=== PATIENT | female | born 1965 | race African-American/Black ===

== ENCOUNTER 2021-06-14 13:24 | Inpatient (IN) | payer OTHER ==
[2021-06-14] MEDS ORDERED: SODIUM CHLORIDE 500 ML IV STA (13:58)
[2021-06-14] MEDS ORDERED: SODIUM CHLORIDE 250 ML IV STA (14:14)
[2021-06-14 14:51] LABS: BASO % 2.7 % (0-2.0); EOS % 0.6 % (0-4.5); LYMPH % 19.7 % (8-40); MCH 32.9 pg (25.7-33.7); MCHC 33.4 g/dl (32.0-36.0); MEAN CELL VOLUME 98.5 fl (80-96); MONO % 5.4 % (3.8-10.2); NEUT % 71.6 % (42.8-82.8); PLATELET COUNT 378 10^3/uL (134-434); RBC 3.96 M/mm3 (3.60-5.2); RDW 15.8 % (11.6-15.6); WHITE BLOOD COUNT 9.8 K/mm3 (4.0-10.0)
[2021-06-14 15:15] LABS: CHLORIDE 97 mmol/L (98-107); SODIUM 137 mmol/L (136-145)
[2021-06-14 15:16] LABS: MAGNESIUM 2.2 mg/dL (1.8-2.4)
[2021-06-14 15:17] LABS: CALCIUM 8.5 mg/dL (8.5-10.1)
[2021-06-14 15:18] LABS: ALBUMIN 2.9 g/dl (3.4-5.0); ANION GAP 17 MMOL/L (8-16); BLOOD UREA NITROGEN 82.4 mg/dL (7-18); CO2 22 mmol/L (21-32)
[2021-06-14 15:20] LABS: PHOSPHOROUS 7.8 mg/dL (2.5-4.9)
[2021-06-14 15:21] LABS: SGOT/AST 12 U/L (15-37); SGPT/ALT 37 U/L (13-61)
[2021-06-14 15:22] LABS: BILIRUBIN,TOTAL 0.5 mg/dL (0.2-1); TOT PROT 6.2 g/dl (6.4-8.2)
[2021-06-14 15:24] LABS: ALK PHOS 143 U/L (45-117)
[2021-06-14] MEDS ORDERED: INSULIN REGULAR HUMAN 100 UNITS/ML *VIAL IVPUSH ONE (15:28)
[2021-06-14 15:36] LABS: CREATININE 11.5 mg/dL (0.55-1.3); GLUCOSE,RANDOM 406 mg/dL (74-106); LACTIC ACID 5.8 mmol/L (0.4-2.0)
[2021-06-14] MEDS ORDERED: INSULIN REGULAR HUMAN 100 UNITS/ML *VIAL ONE (15:57)
[2021-06-14] MEDS ORDERED: RAPID SEQUENCE INTUBATION KIT NR ONE (16:04)
[2021-06-14] MEDS ORDERED: VANCOMYCIN 1 GM in D5W (PRE-DOCKED) 1,000 MG/250 ML IVPB ONE (16:40)
[2021-06-14] MEDS ORDERED: PIPERACILLIN/TAZOB 4.5 GM 4.5 GM in DEXTROSE 5%-WATER 100 ML IVPB ONE (16:40)
[2021-06-14 16:42] LABS: VENOUS BASE EXCESS -12.4 mmol/L (-2-2); VENOUS O2 SATURATION 72.4 % (70-80); VENOUS PCO2 48.4 mmHg (38-52)
[2021-06-14] MEDS ORDERED: VANCOMYCIN 1 GRAM (PRE-DOCKED) 1,000 MG/250 ML BAG IVPB ONE (16:50)
[2021-06-14] MEDS ORDERED: SODIUM CHLORIDE 1,000 ML IV STA (16:50)
[2021-06-14] MEDS ORDERED: PIPERACILLIN/TAZOB 4.5 GM 4.5 GM/100 ML BAG IVPB ONE (16:50)
[2021-06-14 17:02] LABS: VENOUS PH 7.15 (7.310-7.410)
[2021-06-14] MEDS: NOREPINEPHRINE BITARTRATE 16,000 MCG in SODIUM CHLORIDE 484 ML IV SCH (17:15)
[2021-06-14] MEDS ORDERED: ONDANSETRON 4 MG/2 ML VIAL ONE (20:17)
[2021-06-14] MEDS ORDERED: ONDANSETRON 4 MG/2 ML VIAL IVPB ONE (20:26)
[2021-06-14 21:28] LABS: CHLORIDE 101 mmol/L (98-107); SODIUM 138 mmol/L (136-145)
[2021-06-14 21:29] LABS: ANION GAP 17 MMOL/L (8-16); BLOOD UREA NITROGEN 82.1 mg/dL (7-18); CALCIUM 8.3 mg/dL (8.5-10.1); CO2 19 mmol/L (21-32)
[2021-06-14 21:47] LABS: CREATININE 11.5 mg/dL (0.55-1.3); GLUCOSE,RANDOM 428 mg/dL (74-106)
[2021-06-14] MEDS ORDERED: VASOPRESSIN 20 UNITS/ML VIAL IV ONE (22:14)
[2021-06-14] MEDS ORDERED: HEPARIN NA (PORCINE) 5,000 UNITS/ML 1ML VIAL ONE (22:21)
[2021-06-14] MEDS ORDERED: INSULIN REGULAR 100 UNITS in SODIUM CHLORIDE 99 ML IVPB SCH (22:30)
[2021-06-14] MEDS: VASOPRESSIN 40 UNITS/100 ML BAG IV SCH (22:45)
[2021-06-14] MEDS: HEPARIN NA (PORCINE) 5,000 UNITS/ML 1ML VIAL SQ SCH (22:45)
[2021-06-14 23:26] VITALS: BMI 42.2
[2021-06-15 00:01] LABS: ARTERIAL BLD GAS O2 SATURATION 99.5 % (95-98); ARTERIAL BLOOD GAS BASE EXCESS -12.4 mmol/L (-2-2); ARTERIAL BLOOD GAS PO2 292.1 mmHg (80-100); ARTERIAL BLOOD GAS pH 7.196 (7.350-7.450)
[2021-06-15] MEDS ORDERED: NOREPINEPHRINE BITARTRATE 4 MG/4 ML ML IV ONE (00:57)
[2021-06-15] MEDS ORDERED: SODIUM CHLORIDE 250 ML IV PRN (01:29)
[2021-06-15 04:54] LABS: CHLORIDE 102 mmol/L (98-107); SODIUM 138 mmol/L (136-145)
[2021-06-15 04:56] LABS: ALBUMIN 2.4 g/dl (3.4-5.0); ANION GAP 18 MMOL/L (8-16); BLOOD UREA NITROGEN 85.9 mg/dL (7-18); CO2 18 mmol/L (21-32)
[2021-06-15 04:59] LABS: SGOT/AST 12 U/L (15-37); SGPT/ALT 29 U/L (13-61)
[2021-06-15 05:01] LABS: BILIRUBIN,TOTAL 0.5 mg/dL (0.2-1); TOT PROT 5.6 g/dl (6.4-8.2)
[2021-06-15 05:19] LABS: ALK PHOS 109 U/L (45-117); CREATININE 11.2 mg/dL (0.55-1.3); GLUCOSE,RANDOM 408 mg/dL (74-106)
[2021-06-15] MEDS: HEPARIN NA (PORCINE) 5,000 UNITS/ML 1ML VIAL SQ SCH ×3 (05:54→22:09)
[2021-06-15 06:37] LABS: ARTERIAL BLD GAS O2 SATURATION 99.3 % (95-98); ARTERIAL BLOOD GAS BASE EXCESS -11.3 mmol/L (-2-2); ARTERIAL BLOOD GAS pH 7.214 (7.350-7.450)
[2021-06-15 06:57] LABS: HEMATOCRIT 42.6 % (32.4-45.2); HEMOGLOBIN 13.9 GM/dL (10.7-15.3); MCHC 32.6 g/dl (32.0-36.0); MEAN CELL VOLUME 101.3 fl (80-96); MEAN PLT VOLUME 10.7 fl (7.5-11.1); PLATELET COUNT 427 10^3/uL (134-434); WHITE BLOOD COUNT 14.4 K/mm3 (4.0-10.0)
[2021-06-15 07:09] LABS: CHLORIDE 105 mmol/L (98-107); SODIUM 138 mmol/L (136-145)
[2021-06-15 07:12] LABS: ALBUMIN 2.2 g/dl (3.4-5.0); ANION GAP 13 MMOL/L (8-16); CO2 20 mmol/L (21-32); GLUCOSE,RANDOM 250 mg/dL (74-106); MAGNESIUM 1.9 mg/dL (1.8-2.4)
[2021-06-15 07:15] LABS: PHOSPHOROUS 6.1 mg/dL (2.5-4.9); SGOT/AST 11 U/L (15-37); SGPT/ALT 28 U/L (13-61)
[2021-06-15 07:16] LABS: BILIRUBIN,TOTAL 0.5 mg/dL (0.2-1)
[2021-06-15 07:17] LABS: TOT PROT 5.7 g/dl (6.4-8.2)
[2021-06-15 07:18] LABS: ALK PHOS 102 U/L (45-117)
[2021-06-15 07:22] LABS: LACTIC ACID 3.1 mmol/L (0.4-2.0)
[2021-06-15 07:23] LABS: CREATININE 11.3 mg/dL (0.55-1.3)
[2021-06-15] MEDS: INSULIN SLIDING SCALE (NOVOLOG) 1 VIAL SQ SCH ×4 (09:03→22:07)
[2021-06-15] MEDS: INSULIN (LEVEMIR) 100 UNITS/ML UNITS SQ SCH ×2 (09:07→22:08)
[2021-06-15] MEDS: ONDANSETRON 4 MG/2 ML VIAL IVPUSH PRN (09:07)
[2021-06-15] MEDS ORDERED: FLU VACC QS2021-22(6MOS UP)/PF 60 MCG/0.5 ML SYRINGE IM ONE (10:00)
[2021-06-15] MEDS: MUPIROCIN 2% TOPICAL OINTMENT FOR DECOLONIZATION NS SCH ×2 (10:00→22:13)
[2021-06-15 10:37] LABS: ANISOCYTOSIS 0; HELMET CELLS 0; HOWELL-JOLLY BODIES 0; MACROCYTOSIS 0; OVALOCYTE 0; PLATELET ESTIMATE NORMAL; ROULEAU 0; SICKELED CELLS 0; TARGET CELLS 0; TEAR DROP CELLS 0; TOXIC GRANULATION 0
[2021-06-15] MEDS ORDERED: PIPERACILLIN/TAZOB 2.25 GM 2.25 GM in DEXTROSE 5%-WATER - 50 ML IVPB SCH (11:45)
[2021-06-15] MEDS ORDERED: INSULIN (LEVEMIR) 100 UNITS/ML UNITS SQ ONE (12:10)
[2021-06-15] MEDS ORDERED: MIDAZOLAM HCL 2 MG/2 ML SINGLE DOSE VIAL IVPUSH ONE ×2 (12:13→13:00)
[2021-06-15] MEDS ORDERED: PIPERACILLIN/TAZOBACTAM 2.25 GM VIAL IVPB ONE ×2 (12:18→20:00)
[2021-06-15] MEDS ORDERED: DEXTROSE 5%-WATER - 50 ML IVPB ONE ×2 (12:19→20:01)
[2021-06-15] MEDS: HYDROCORTISONE SOD SUCCINATE 100 MG/2 ML VIAL IVPUSH SCH ×3 (12:20→22:10)
[2021-06-15] MEDS: PIPERACILLIN/TAZOB 2.25 GM 2.25 GM in DEXTROSE 5%-WATER - 50 ML IVPB SCH ×2 (12:21→19:30)
[2021-06-15] MEDS ORDERED: VANCOMYCIN 1 GM in D5W (PRE-DOCKED) 1,000 MG/250 ML IVPB ONE (13:00)
[2021-06-15] MEDS: VASOPRESSIN 40 UNITS/100 ML BAG IV SCH ×2 (19:50→23:22)
[2021-06-15] MEDS: SEVELAMER CARBONATE 800 MG TAB (FP) NR SCH ×2 (20:41→22:13)
[2021-06-15] MEDS: CHLORHEXIDINE GLUCONATE 4% CLEANSER FOR DECOLONIZATION TP SCH (22:12)
[2021-06-15] MEDS: NOREPINEPHRINE BITARTRATE 16,000 MCG in SODIUM CHLORIDE 484 ML IV SCH ×2 (22:12→23:22)
[2021-06-16] MEDS ORDERED: PIPERACILLIN/TAZOBACTAM 2.25 GM VIAL IVPB ONE ×3 (01:16→17:51)
[2021-06-16] MEDS ORDERED: DEXTROSE 5%-WATER - 50 ML IVPB ONE ×3 (01:16→17:51)
[2021-06-16] MEDS: PIPERACILLIN/TAZOB 2.25 GM 2.25 GM in DEXTROSE 5%-WATER - 50 ML IVPB SCH ×3 (01:23→18:02)
[2021-06-16] MEDS: ONDANSETRON 4 MG/2 ML VIAL IVPUSH PRN ×2 (01:47→21:56)
[2021-06-16] MEDS: VASOPRESSIN 40 UNITS/100 ML BAG IV SCH ×2 (02:28→21:56)
[2021-06-16] MEDS: HYDROCORTISONE SOD SUCCINATE 100 MG/2 ML VIAL IVPUSH SCH ×3 (03:35→18:16)
[2021-06-16] MEDS: HEPARIN NA (PORCINE) 5,000 UNITS/ML 1ML VIAL SQ SCH ×3 (05:46→21:56)
[2021-06-16] MEDS: SEVELAMER CARBONATE 800 MG TAB (FP) NR SCH ×3 (05:46→21:57)
[2021-06-16] MEDS: INSULIN (LEVEMIR) 100 UNITS/ML UNITS SQ SCH ×2 (06:03→21:57)
[2021-06-16] MEDS: INSULIN SLIDING SCALE (NOVOLOG) 1 VIAL SQ SCH ×4 (06:03→22:12)
[2021-06-16 07:03] LABS: BASO % 0.4 % (0-2.0); EOS % 1.5 % (0-4.5); HEMATOCRIT 32.1 % (32.4-45.2); HEMOGLOBIN 10.5 GM/dL (10.7-15.3); LYMPH % 8.9 % (8-40); MCH 33.3 pg (25.7-33.7); MCHC 32.8 g/dl (32.0-36.0); MEAN CELL VOLUME 101.5 fl (80-96); MEAN PLT VOLUME 10.7 fl (7.5-11.1); MONO % 8.5 % (3.8-10.2); NEUT % 80.7 % (42.8-82.8); PLATELET COUNT 257 10^3/uL (134-434); RBC 3.17 M/mm3 (3.60-5.2); RDW 15.7 % (11.6-15.6); WHITE BLOOD COUNT 14.4 K/mm3 (4.0-10.0)
[2021-06-16 07:18] LABS: CHLORIDE 100 mmol/L (98-107); SODIUM 139 mmol/L (136-145)
[2021-06-16 07:22] LABS: ANION GAP 15 MMOL/L (8-16); CO2 24 mmol/L (21-32); GLUCOSE,RANDOM 268 mg/dL (74-106)
[2021-06-16 07:25] LABS: PHOSPHOROUS 5.6 mg/dL (2.5-4.9); SGOT/AST 12 U/L (15-37); SGPT/ALT 19 U/L (13-61)
[2021-06-16 07:26] LABS: BILIRUBIN,TOTAL 0.4 mg/dL (0.2-1)
[2021-06-16 07:27] LABS: TOT PROT 5.2 g/dl (6.4-8.2)
[2021-06-16 07:28] LABS: ALK PHOS 90 U/L (45-117)
[2021-06-16 07:32] LABS: BLOOD UREA NITROGEN 52.9 mg/dL (7-18); CREATININE 7.9 mg/dL (0.55-1.3)
[2021-06-16] MEDS: MUPIROCIN 2% TOPICAL OINTMENT FOR DECOLONIZATION NS SCH ×2 (10:14→21:56)
[2021-06-16] MEDS ORDERED: MELATONIN 5 MG TABLETS PO PRN (10:37)
[2021-06-16 11:54] LABS: HIV INTERPRETATION NEGATIVE (NEGATIVE)
[2021-06-16] MEDS ORDERED: SODIUM CHLORIDE 250 ML IV PRN (12:14)
[2021-06-16] MEDS: POLYETHYLENE GLYCOL (HEALTHYLAX) 3350 17 GM PACKET PO SCH (21:57)
[2021-06-16] MEDS: CHLORHEXIDINE GLUCONATE 4% CLEANSER FOR DECOLONIZATION TP SCH (21:57)
[2021-06-16] MEDS ORDERED: traZODone HCL 50 MG TABLET (FP) PO SCH (22:00)
[2021-06-17] MEDS ORDERED: PIPERACILLIN/TAZOBACTAM 2.25 GM VIAL IVPB ONE ×3 (01:28→18:17)
[2021-06-17] MEDS ORDERED: DEXTROSE 5%-WATER - 50 ML IVPB ONE ×3 (01:28→18:17)
[2021-06-17] MEDS: HYDROCORTISONE SOD SUCCINATE 100 MG/2 ML VIAL IVPUSH SCH ×3 (01:47→22:17)
[2021-06-17] MEDS: PIPERACILLIN/TAZOB 2.25 GM 2.25 GM in DEXTROSE 5%-WATER - 50 ML IVPB SCH ×3 (01:47→20:21)
[2021-06-17] MEDS: SEVELAMER CARBONATE 800 MG TAB (FP) NR SCH ×2 (05:40→13:52)
[2021-06-17] MEDS: POLYETHYLENE GLYCOL (HEALTHYLAX) 3350 17 GM PACKET PO SCH ×3 (05:40→22:13)
[2021-06-17] MEDS: HEPARIN NA (PORCINE) 5,000 UNITS/ML 1ML VIAL SQ SCH ×3 (05:40→22:13)
[2021-06-17] MEDS: INSULIN (LEVEMIR) 100 UNITS/ML UNITS SQ SCH ×2 (06:00→22:15)
[2021-06-17] MEDS: INSULIN SLIDING SCALE (NOVOLOG) 1 VIAL SQ SCH ×4 (06:11→22:14)
[2021-06-17 07:04] LABS: HEMATOCRIT 29.3 % (32.4-45.2); HEMOGLOBIN 9.7 GM/dL (10.7-15.3); MCH 33.5 pg (25.7-33.7); MCHC 33.2 g/dl (32.0-36.0); MEAN CELL VOLUME 100.7 fl (80-96); MEAN PLT VOLUME 10.2 fl (7.5-11.1); PLATELET COUNT 223 10^3/uL (134-434); RBC 2.91 M/mm3 (3.60-5.2); RDW 15.9 % (11.6-15.6); WHITE BLOOD COUNT 14.5 K/mm3 (4.0-10.0)
[2021-06-17 07:22] LABS: CHLORIDE 102 mmol/L (98-107); SODIUM 139 mmol/L (136-145)
[2021-06-17 07:24] LABS: CALCIUM 7.5 mg/dL (8.5-10.1)
[2021-06-17 07:25] LABS: ALBUMIN 2.1 g/dl (3.4-5.0); ANION GAP 9 MMOL/L (8-16); BLOOD UREA NITROGEN 64.2 mg/dL (7-18); CO2 27 mmol/L (21-32); GLUCOSE,RANDOM 138 mg/dL (74-106); MAGNESIUM 1.9 mg/dL (1.8-2.4)
[2021-06-17 07:27] LABS: PHOSPHOROUS 4.7 mg/dL (2.5-4.9)
[2021-06-17 07:28] LABS: SGOT/AST 7 U/L (15-37); SGPT/ALT 16 U/L (13-61)
[2021-06-17 07:29] LABS: BILIRUBIN,TOTAL 0.4 mg/dL (0.2-1)
[2021-06-17 07:30] LABS: TOT PROT 5.4 g/dl (6.4-8.2)
[2021-06-17 07:31] LABS: ALK PHOS 88 U/L (45-117)
[2021-06-17 07:32] LABS: IRON SERUM 108 ug/dL (50-175); TOTAL IRON BINDING CAPACITY 88 ug/dL (250-450)
[2021-06-17] MEDS: ONDANSETRON 4 MG/2 ML VIAL IVPUSH PRN (08:17)
[2021-06-17] MEDS ORDERED: HYDROCORTISONE SOD SUCCINATE 100 MG/2 ML VIAL IVPUSH SCH (10:15)
[2021-06-17 10:31] LABS: ANISOCYTOSIS 1+; MACROCYTOSIS 0; PLATELET ESTIMATE NORMAL; TARGET CELLS 1+
[2021-06-17] MEDS: MUPIROCIN 2% TOPICAL OINTMENT FOR DECOLONIZATION NS SCH ×2 (10:33→22:12)
[2021-06-17] MEDS: NOREPINEPHRINE BITARTRATE 16,000 MCG in SODIUM CHLORIDE 484 ML IV SCH (17:59)
[2021-06-17] MEDS: SEVELAMER CARBONATE 800 MG TAB (FP) PO SCH (18:23)
[2021-06-17] MEDS: traZODone HCL 50 MG TABLET (FP) PO SCH (22:12)
[2021-06-17] MEDS: CHLORHEXIDINE GLUCONATE 4% CLEANSER FOR DECOLONIZATION TP SCH (22:13)
[2021-06-17] MEDS ORDERED: PT OWN MED DRAWER 7, Y5N ONE (23:04)
[2021-06-18] MEDS ORDERED: DEXTROSE 5%-WATER - 50 ML IVPB ONE ×2 (01:20→09:40)
[2021-06-18] MEDS ORDERED: PIPERACILLIN/TAZOBACTAM 2.25 GM VIAL IVPB ONE ×2 (01:20→09:40)
[2021-06-18] MEDS: PIPERACILLIN/TAZOB 2.25 GM 2.25 GM in DEXTROSE 5%-WATER - 50 ML IVPB SCH ×2 (01:55→10:08)
[2021-06-18] MEDS: POLYETHYLENE GLYCOL (HEALTHYLAX) 3350 17 GM PACKET PO SCH ×3 (06:18→21:37)
[2021-06-18] MEDS: INSULIN SLIDING SCALE (NOVOLOG) 1 VIAL SQ SCH ×4 (06:19→21:38)
[2021-06-18] MEDS: HEPARIN NA (PORCINE) 5,000 UNITS/ML 1ML VIAL SQ SCH ×3 (06:40→21:44)
[2021-06-18] MEDS: INSULIN (LEVEMIR) 100 UNITS/ML UNITS SQ SCH ×2 (06:42→21:45)
[2021-06-18] MEDS ORDERED: PT OWN MED DRAWER 7, Y5N ONE (06:53)
[2021-06-18 09:08] LABS: HEMATOCRIT 29.8 % (32.4-45.2); HEMOGLOBIN 9.7 GM/dL (10.7-15.3); MCH 32.9 pg (25.7-33.7); MCHC 32.5 g/dl (32.0-36.0); MEAN CELL VOLUME 101.4 fl (80-96); MEAN PLT VOLUME 9.9 fl (7.5-11.1); PLATELET COUNT 209 10^3/uL (134-434); RBC 2.94 M/mm3 (3.60-5.2); RDW 15.3 % (11.6-15.6); WHITE BLOOD COUNT 13.3 K/mm3 (4.0-10.0)
[2021-06-18 09:26] LABS: CALCIUM 7.5 mg/dL (8.5-10.1)
[2021-06-18 09:27] LABS: MAGNESIUM 1.9 mg/dL (1.8-2.4)
[2021-06-18 09:29] LABS: PHOSPHOROUS 2.5 mg/dL (2.5-4.9)
[2021-06-18 09:31] LABS: BILIRUBIN,TOTAL 0.4 mg/dL (0.2-1); CREATININE 6.3 mg/dL (0.55-1.3); TOT PROT 5.1 g/dl (6.4-8.2)
[2021-06-18 09:56] LABS: BLOOD UREA NITROGEN 38.9 mg/dL (7-18)
[2021-06-18] MEDS: SEVELAMER CARBONATE 800 MG TAB (FP) PO SCH ×3 (10:08→17:48)
[2021-06-18] MEDS: MUPIROCIN 2% TOPICAL OINTMENT FOR DECOLONIZATION NS SCH ×2 (10:09→21:37)
[2021-06-18] MEDS: HYDROCORTISONE SOD SUCCINATE 100 MG/2 ML VIAL IVPUSH SCH ×2 (10:09→21:44)
[2021-06-18 10:25] LABS: ANISOCYTOSIS 1+; MACROCYTOSIS 1+; PLATELET ESTIMATE NORMAL
[2021-06-18] MEDS ORDERED: POTASSIUM CHLORIDE TABS 20 MEQ TABLET.ER (FP) PO ONE (12:17)
[2021-06-18] MEDS ORDERED: SODIUM CHLORIDE 250 ML IV PRN ×2 (13:07→13:15)
[2021-06-18] MEDS: CHLORHEXIDINE GLUCONATE 4% CLEANSER FOR DECOLONIZATION TP SCH (21:44)
[2021-06-18] MEDS: traZODone HCL 50 MG TABLET (FP) PO SCH (21:44)
[2021-06-18] MEDS ORDERED: PROCHLORPERAZINE MALEATE 5 MG TABLET PO ONE (22:32)
[2021-06-19] MEDS: HEPARIN NA (PORCINE) 5,000 UNITS/ML 1ML VIAL SQ SCH ×3 (06:24→21:25)
[2021-06-19] MEDS: POLYETHYLENE GLYCOL (HEALTHYLAX) 3350 17 GM PACKET PO SCH ×3 (06:24→21:21)
[2021-06-19] MEDS: INSULIN SLIDING SCALE (NOVOLOG) 1 VIAL SQ SCH ×4 (06:25→21:35)
[2021-06-19] MEDS: INSULIN (LEVEMIR) 100 UNITS/ML UNITS SQ SCH ×2 (06:25→21:35)
[2021-06-19] MEDS ORDERED: EPOETIN ALFA-EPBX 4,000 UNIT/ML VIAL IVPUSH ONE (08:30)
[2021-06-19 10:58] LABS: IRON SERUM 60 ug/dL (50-175); TOTAL IRON BINDING CAPACITY 108 ug/dL (250-450)
[2021-06-19 11:32] LABS: HEMATOCRIT 29.6 % (32.4-45.2); HEMOGLOBIN 9.8 GM/dL (10.7-15.3); MCH 33.4 pg (25.7-33.7); MEAN CELL VOLUME 101.1 fl (80-96); MEAN PLT VOLUME 10.2 fl (7.5-11.1); PLATELET COUNT 212 10^3/uL (134-434); RBC 2.93 M/mm3 (3.60-5.2); RDW 15.1 % (11.6-15.6); WHITE BLOOD COUNT 13.7 K/mm3 (4.0-10.0)
[2021-06-19 11:37] LABS: CHLORIDE 103 mmol/L (98-107); SODIUM 140 mmol/L (136-145)
[2021-06-19 11:38] LABS: CALCIUM 7.8 mg/dL (8.5-10.1)
[2021-06-19 11:39] LABS: ANION GAP 11 MMOL/L (8-16); CO2 26 mmol/L (21-32); GLUCOSE,RANDOM 116 mg/dL (74-106)
[2021-06-19 11:42] LABS: PHOSPHOROUS 2.7 mg/dL (2.5-4.9)
[2021-06-19 11:43] LABS: CREATININE 7.6 mg/dL (0.55-1.3)
[2021-06-19] MEDS: SEVELAMER CARBONATE 800 MG TAB (FP) PO SCH ×3 (13:58→18:02)
[2021-06-19] MEDS: MUPIROCIN 2% TOPICAL OINTMENT FOR DECOLONIZATION NS SCH ×2 (13:58→21:20)
[2021-06-19] MEDS: CHLORHEXIDINE GLUCONATE 4% CLEANSER FOR DECOLONIZATION TP SCH (21:21)
[2021-06-19] MEDS: MELATONIN 5 MG TABLETS PO PRN (21:26)
[2021-06-19] MEDS: traZODone HCL 50 MG TABLET (FP) PO SCH (21:26)
[2021-06-20] MEDS: POLYETHYLENE GLYCOL (HEALTHYLAX) 3350 17 GM PACKET PO SCH ×2 (05:42→14:34)
[2021-06-20] MEDS: HEPARIN NA (PORCINE) 5,000 UNITS/ML 1ML VIAL SQ SCH ×3 (06:06→21:46)
[2021-06-20] MEDS: INSULIN SLIDING SCALE (NOVOLOG) 1 VIAL SQ SCH ×4 (06:10→21:46)
[2021-06-20] MEDS: INSULIN (LEVEMIR) 100 UNITS/ML UNITS SQ SCH ×2 (06:23→21:45)
[2021-06-20] MEDS: SEVELAMER CARBONATE 800 MG TAB (FP) PO SCH ×2 (11:08→12:52)
[2021-06-20] MEDS: CALCIUM ACETATE 667 MG CAPSULE (FP) PO SCH (17:44)
[2021-06-20] MEDS: MELATONIN 5 MG TABLETS PO PRN (21:16)
[2021-06-20] MEDS: traZODone HCL 50 MG TABLET (FP) PO SCH (21:16)
[2021-06-20] MEDS: CHLORHEXIDINE GLUCONATE 4% CLEANSER FOR DECOLONIZATION TP SCH (21:45)
[2021-06-21] MEDS: INSULIN SLIDING SCALE (NOVOLOG) 1 VIAL SQ SCH ×4 (06:33→23:38)
[2021-06-21] MEDS: INSULIN (LEVEMIR) 100 UNITS/ML UNITS SQ SCH ×2 (06:33→23:37)
[2021-06-21 08:47] LABS: HEMATOCRIT 30.9 % (32.4-45.2); HEMOGLOBIN 10.1 GM/dL (10.7-15.3); MCH 33.2 pg (25.7-33.7); MCHC 32.7 g/dl (32.0-36.0); MEAN CELL VOLUME 101.7 fl (80-96); PLATELET COUNT 270 10^3/uL (134-434); RBC 3.04 M/mm3 (3.60-5.2); RDW 15.3 % (11.6-15.6); WHITE BLOOD COUNT 13.9 K/mm3 (4.0-10.0)
[2021-06-21 09:32] LABS: CHLORIDE 102 mmol/L (98-107); SODIUM 139 mmol/L (136-145)
[2021-06-21 09:40] LABS: ANION GAP 11 MMOL/L (8-16); BLOOD UREA NITROGEN 34.7 mg/dL (7-18); CALCIUM 8.4 mg/dL (8.5-10.1); CO2 25 mmol/L (21-32); GLUCOSE,RANDOM 131 mg/dL (74-106)
[2021-06-21 09:45] LABS: CREATININE 7.6 mg/dL (0.55-1.3)
[2021-06-21] MEDS: CALCIUM ACETATE 667 MG CAPSULE (FP) PO SCH ×3 (10:08→17:38)
[2021-06-21] MEDS ORDERED: SODIUM CHLORIDE 250 ML IV PRN ×2 (13:09→19:06)
[2021-06-21] MEDS ORDERED: HEPARIN NA (PORCINE) 5,000 UNITS/ML 1ML VIAL ONE ×2 (16:18→18:27)
[2021-06-21] MEDS ORDERED: LIDOCAINE HCL 1%, 10 MG/ML (20ML VIAL) ONE (16:18)
[2021-06-21] MEDS ORDERED: MIDAZOLAM HCL 2 MG/2 ML SINGLE DOSE VIAL ONE (18:01)
[2021-06-21] MEDS ORDERED: PROPOFOL 20 ML ONE (18:01)
[2021-06-21] MEDS ORDERED: ceFAZolin SODIUM 1 GM VIAL IVPB ONE (18:15)
[2021-06-21] MEDS ORDERED: LIDOCAINE HCL 1%, 10 MG/ML (20ML VIAL) NR ONE (18:21)
[2021-06-21] MEDS ORDERED: ceFAZolin SODIUM 1 GM VIAL ONE (18:22)
[2021-06-21] MEDS ORDERED: MELATONIN 5 MG TABLETS PO PRN (19:06)
[2021-06-21] MEDS ORDERED: traZODone HCL 50 MG TABLET (FP) PO SCH (22:00)
[2021-06-21] MEDS ORDERED: CHLORHEXIDINE GLUCONATE 4% CLEANSER FOR DECOLONIZATION TP SCH (22:00)
[2021-06-21] MEDS: POLYETHYLENE GLYCOL (HEALTHYLAX) 3350 17 GM PACKET PO SCH (23:37)
[2021-06-21] MEDS: HEPARIN NA (PORCINE) 5,000 UNITS/ML 1ML VIAL SQ SCH (23:37)
[2021-06-22] MEDS: INSULIN SLIDING SCALE (NOVOLOG) 1 VIAL SQ SCH (07:02)
[2021-06-22] MEDS: POLYETHYLENE GLYCOL (HEALTHYLAX) 3350 17 GM PACKET PO SCH (07:02)
[2021-06-22] MEDS: INSULIN (LEVEMIR) 100 UNITS/ML UNITS SQ SCH (07:03)
[2021-06-22] MEDS: HEPARIN NA (PORCINE) 5,000 UNITS/ML 1ML VIAL SQ SCH (07:03)
[2021-06-22] MEDS ORDERED: CALCIUM ACETATE 667 MG CAPSULE (FP) PO SCH (08:00)
[2021-06-22 10:23] VITALS: BP 110/65; PULSE 95; TEMP 99
== END 2021-06-22 10:20 | disposition home or self-care (01) | DRG 853 ==
LOC: JER 13:24 → JERBED 13:58 → JICU 23:00 → J5S 06-17 16:49
PROVIDERS: ADMIT Internal Medicine Pulmonary Disease; ATTEND Internal Medicine
PROC: 03CY3ZZ Extirpation of Matter from Upper Artery, Percutaneous Approach (ICD-10-PCS; principal; 2021-06-15)
PROC: B544ZZA Ultrasonography of Left Jugular Veins, Guidance (ICD-10-PCS; 2021-06-15)
PROC: 05HN33Z Insertion of Infusion Device into Left Internal Jugular Vein, Percutaneous Approach (ICD-10-PCS; 2021-06-15)
PROC: 5A1D70Z Performance of Urinary Filtration, Intermittent, Less than 6 Hours Per Day (ICD-10-PCS; 2021-06-15)
PROC: 5A1D70Z Performance of Urinary Filtration, Intermittent, Less than 6 Hours Per Day (ICD-10-PCS; 2021-06-17)
PROC: 5A1D70Z Performance of Urinary Filtration, Intermittent, Less than 6 Hours Per Day (ICD-10-PCS; 2021-06-19)
PROC: 037 Upper Arteries, Dilation (ICD-10-PCS; 2021-06-21)
PROC: B51NZZZ Fluoroscopy of Left Upper Extremity Veins (ICD-10-PCS; 2021-06-21)
PROC: 5A1D70Z Performance of Urinary Filtration, Intermittent, Less than 6 Hours Per Day (ICD-10-PCS; 2021-06-21)
DX: A41.89 Other specified sepsis (principal); E11.00 Type 2 diabetes mellitus with hyperosmolarity without nonketotic hyperglycemic-hyperosmolar coma (NKHHC); N18.6 End stage renal disease; G93.41 Metabolic encephalopathy; R65.21 Severe sepsis with septic shock; I12.0 Hypertensive chronic kidney disease with stage 5 chronic kidney disease or end stage renal disease; E87.2 Acidosis; Z68.41 Body mass index [BMI] 40.0-44.9, adult; T82.868A Thrombosis due to vascular prosthetic devices, implants and grafts, initial encounter; D72.829 Elevated white blood cell count, unspecified; K52.9 Noninfective gastroenteritis and colitis, unspecified; E87.5 Hyperkalemia; R55 Syncope and collapse; E66.01 Morbid (severe) obesity due to excess calories; N25.0 Renal osteodystrophy; R50.9 Fever, unspecified; E83.39 Other disorders of phosphorus metabolism; R19.5 Other fecal abnormalities; N39.490 Overflow incontinence; K29.80 Duodenitis without bleeding; E03.9 Hypothyroidism, unspecified; E11.22 Type 2 diabetes mellitus with diabetic chronic kidney disease; W05.0XXA Fall from non-moving wheelchair, initial encounter; Z99.2 Dependence on renal dialysis; Z89.512 Acquired absence of left leg below knee; Z89.511 Acquired absence of right leg below knee; Y92.098 Other place in other non-institutional residence as the place of occurrence of the external cause; Y83.8 Other surgical procedures as the cause of abnormal reaction of the patient, or of later complication, without mention of misadventure at the time of the procedure
CPT/HCPCS: 36415; 36600; 71045-TC-FY; 74176-TC; 76000-TC-FY; 80048; 80053; 82010; 82272; 82550; 82607; 82728; 82746; 82803; 82962; 83540; 83550; 83605; 83735; 84100; 84484; 85025; 85027; 86140; 86803; 87040; 87045; 87046; 87177; 87205; 87209; 87324; 87328; 87329; 87340; 87389; 87425; 87449; 87798; 93005; 93010; 94660; 94760; 97116-GP; 97161-GP; 99285-25; C9803; G0480; J1644; J3490; Q5106; U0003; U0005